=== PATIENT | male | born 1990 | race Two or more races ===

== ENCOUNTER → 2016-12-20 | Day surgery (SDC) | payer BC ==
[2016-12-15 16:12] VITALS: BMI 32.3
[~2016-12-20] MED LIST: LACTATED RINGERS 1,000 ML IV ONE; LACTATED RINGERS 1,000 ML IV SCH; PROPOFOL 10 MG/ML 20 ML VIAL IV ONE
[2016-12-20 08:14] VITALS: RESP 18; TEMP 98.2
[2016-12-20] MEDS: LIDOCAINE 1% 20 ML VIAL (10MG/ML) FOR IV START INTRADERMA PRN ×2 (08:16→08:34)
--- NOTE | 2016-12-20 10:03 | P.PCN ---
Date of Procedure: 12/20/16 Procedure(s) Performed: Procedure: Colonoscopy and biopsy. Preoperative diagnosis: Change in bowel habits and blood in the stools. Postoperative diagnosis: 1. Abnormal terminal ileum consistent with Crohn's disease, multiple biopsies and pictures taken. 2. Low-grade internal hemorrhoids without bleeding at the time of the exam, otherwise, colonoscopy within normal limits. 3. Random biopsies obtained from the colon. Preparation: HalfLytely prep. Sedation: Was provided by anesthesia. Brief clinical history: The patient is a 26-year-old male who is referred for this evaluation because of blood in the stool and change in bowel habits. He has been experiencing postprandial diarrhea and loose stools for the last couple years or so. He has history of psoriasis but no extraintestinal manifestations of inflammatory bowel disease. He has a cousin with bowel issues but no other family history of inflammatory bowel disease he is aware of. Procedure: With the patient on his left lateral decubitus position and after informed consent and adequate sedation, the perianal area was inspected and it did not show any fissures or fistulas. There were no masses felt on digital rectal examination. The Olympus CFQ 160L video colonoscope was then inserted in the rectum in the usual fashion and advanced to the cecum. I intubated the ileocecal valve and examined the terminal ileum for a good distance. The terminal ileum was abnormal showing the edema, erythema, friability and multiple scattered short serpiginous ulcerations covered with white exudates consistent with Crohn's disease. There were no strictures. The small bowel was involved for the full distance I was able to advance the colonoscope, although, the involvement appeared less proximally. I obtained multiple pictures and multiple biopsies from the small intestine then the endoscope was withdrawn back to the cecum. While withdrawing the endoscope I inspected the colon carefully and no abnormalities were seen. I obtained random biopsies from the colon. I then retroflexed the endoscope in the rectum before the endoscope was withdrawn. The patient tolerated the procedure well. Plan: I summarized the findings to the patient and his mother. While we are waiting for the biopsy results I would suggest that we proceed with the obtaining baseline workup anticipating initiating immunosuppressive/biologic therapy. I will keep you updated on his progress.
[2016-12-20 10:27] VITALS: BP 144/93; PULSE 79
== END ==
LOC: ORWHC2ENDO 08:05
DX: K52.9 Noninfective gastroenteritis and colitis, unspecified (principal); K64.8 Other hemorrhoids; R19.4 Change in bowel habit; I10 Essential (primary) hypertension; L40.9 Psoriasis, unspecified; Z88.0 Allergy status to penicillin; Z79.899 Other long term (current) drug therapy
CPT/HCPCS: 88305; 45380; J2704

== ENCOUNTER → 2017-01-07 | Outpatient (CLI) | payer BC ==
[2017-01-07 11:01] LABS: CHCM 33.7; HCT 43.1 % (39.0-53.0); HDW 2.99; HGB 13.8 gm/dL (13.0-17.5); MCH 26.8 pg (25.0-35.0); MCHC 32.1 g/dL (31.0-37.0); MCV 83.5 fL (80.0-100.0); Mean Platelet Volume 7.4; RBC 5.16 m/uL (4.30-5.90); RDW 13.1 % (11.5-15.5); WBC 13.1 k/uL (3.8-10.6)
[2017-01-07 11:13] LABS: ALT 46 U/L (21-72); AST 28 U/L (17-59); Alkaline Phosphatase 78 U/L (38-126); Anion Gap 9 mmol/L; Blood Urea Nitrogen 14 mg/dL (9-20); Calcium 9.8 mg/dL (8.4-10.2); Carbon Dioxide 28 mmol/L (22-30); Chloride 106 mmol/L (98-107); Glucose 95 mg/dL (74-99); Non-African American GFR(MDRD) >60 (>60 ml/min/1.73 sqM); Potassium 4.4 mmol/L (3.5-5.1); Sodium 143 mmol/L (137-145); Total Bilirubin 0.4 mg/dL (0.2-1.3); Total Protein 7.2 g/dL (6.3-8.2)
[2017-01-07 11:28] LABS: C Reactive Protein 24.4 mg/L (<10.0)
[2017-01-07 13:24] LABS: Erythrocyte Sedimentation Rate 19 mm/hr (0-15)
[2017-01-13 14:11] LABS: Mis test requested (Blood) TMPT Metabolites
== END | disposition home or self-care (01) ==
LOC: LABWHC1 10:07
DX: K50.90 Crohn's disease, unspecified, without complications (principal)
CPT/HCPCS: 36415; 80053; 80074; 82306; 82542; 82607; 85027; 85652; 86140; 86480

== ENCOUNTER → 2017-03-28 | Outpatient (CLI) | payer BC ==
[2017-03-28 14:10] LABS: HCT 43.4 % (39.0-53.0); HGB 14.5 gm/dL (13.0-17.5); MCH 26.9 pg (25.0-35.0); MCHC 33.3 g/dL (31.0-37.0); MCV 80.7 fL (80.0-100.0); Mean Platelet Volume 7.2; Platelet Count 298 k/uL (150-450); RBC 5.38 m/uL (4.30-5.90); RDW 13.1 % (11.5-15.5); WBC 13.3 k/uL (3.8-10.6)
[2017-03-28 14:45] LABS: ALT 60 U/L (21-72); AST 97 U/L (17-59); Albumin 4.8 g/dL (3.5-5.0); Alkaline Phosphatase 100 U/L (38-126); Amylase 59 U/L (30-110); Anion Gap 14 mmol/L; Blood Urea Nitrogen 14 mg/dL (9-20); C Reactive Protein 21.2 mg/L (<10.0); Calcium 10.1 mg/dL (8.4-10.2); Carbon Dioxide 25 mmol/L (22-30); Chloride 101 mmol/L (98-107); Glucose 91 mg/dL (74-99); Lipase 70 U/L (23-300); Potassium 4.3 mmol/L (3.5-5.1); Sodium 140 mmol/L (137-145); Total Bilirubin 0.5 mg/dL (0.2-1.3); Total Protein 7.8 g/dL (6.3-8.2)
[2017-03-28 15:27] LABS: Erythrocyte Sedimentation Rate 16 mm/hr (0-15)
== END | disposition home or self-care (01) ==
LOC: LABWHC1 13:26
DX: K50.00 Crohn's disease of small intestine without complications (principal)
CPT/HCPCS: 36415; 80053; 82150; 82542; 82657; 83690; 85027; 85652; 86140

== ENCOUNTER → 2017-07-28 | Outpatient (CLI) | payer BC ==
[2017-07-28 17:36] LABS: HCT 39.2 % (39.0-53.0); HGB 13.6 gm/dL (13.0-17.5); MCH 27.4 pg (25.0-35.0); MCHC 34.7 g/dL (31.0-37.0); Mean Platelet Volume 7.8; Platelet Count 300 k/uL (150-450); RBC 4.96 m/uL (4.30-5.90); RDW 13.5 % (11.5-15.5)
[2017-07-28 17:47] LABS: ALT 51 U/L (21-72); AST 54 U/L (17-59); Albumin 4.4 g/dL (3.5-5.0); Alkaline Phosphatase 86 U/L (38-126); Anion Gap 12 mmol/L; Blood Urea Nitrogen 16 mg/dL (9-20); Calcium 9.8 mg/dL (8.4-10.2); Carbon Dioxide 27 mmol/L (22-30); Chloride 103 mmol/L (98-107); Glucose 73 mg/dL (74-99); Potassium 4.8 mmol/L (3.5-5.1); Sodium 142 mmol/L (137-145); Total Bilirubin 0.3 mg/dL (0.2-1.3); Total Protein 6.7 g/dL (6.3-8.2)
[2017-07-28 19:58] LABS: Erythrocyte Sedimentation Rate 19 mm/hr (0-15)
== END | disposition home or self-care (01) ==
LOC: LABWHC1 17:03
DX: K50.00 Crohn's disease of small intestine without complications (principal)
CPT/HCPCS: 36415; 80053; 85027; 85652; 86140

== ENCOUNTER → 2018-02-09 | Outpatient (CLI) | payer BC ==
[2018-02-09 16:15] LABS: HCT 43.4 % (39.0-53.0); MCH 28.9 pg (25.0-35.0); MCHC 34.5 g/dL (31.0-37.0); MCV 83.7 fL (80.0-100.0); Mean Platelet Volume 7.9; Platelet Count 260 k/uL (150-450); RBC 5.18 m/uL (4.30-5.90); RDW 12.6 % (11.5-15.5); WBC 10.5 k/uL (3.8-10.6)
[2018-02-09 18:47] LABS: Erythrocyte Sedimentation Rate 8 mm/hr (0-15)
[2018-02-10 02:52] LABS: ALT 54 U/L (10-49); AST 35 U/L (14-35); Alkaline Phosphatase 107 U/L (41-126); C Reactive Protein <0.4 mg/dL (0.0-0.8); Calcium 9.7 mg/dL (8.7-10.3); Carbon Dioxide 28.3 mmol/L (21.6-31.8); Chloride 104 mmol/L (96-109); Glucose 95 mg/dL (70-110); Potassium 4.3 mmol/L (3.5-5.5); Sodium 142 mmol/L (135-145); Total Bilirubin 0.3 mg/dL (0.3-1.2); Total Protein 6.8 g/dL (6.2-8.2)
== END | disposition home or self-care (01) ==
LOC: LABWHC1 15:03
DX: K50.90 Crohn's disease, unspecified, without complications (principal)
CPT/HCPCS: 36415; 80053; 85027; 85652; 86140

== ENCOUNTER 2018-04-04 07:36 | Emergency (ER) | payer BC ==
[2018-04-04 07:59] VITALS: RESP 18
[2018-04-04] MEDS ORDERED: METOCLOPRAMIDE 5 MG/ML 2 ML VIAL IVP STA (08:23)
[2018-04-04] MEDS ORDERED: diphenhydrAMINE 50 MG/ML 1 ML VIAL IVP STA (08:23)
[2018-04-04] MEDS ORDERED: KETOROLAC 30 MG/ML 1 ML VIAL IVP STA (08:23)
[2018-04-04] MEDS ORDERED: SODIUM CHLORIDE 0.9% 1,000 ML IV STA (08:23)
--- NOTE | 2018-04-04 08:29 | ED ---
General Adult HPI - General Chief complaint: Headache Stated complaint: headaches, lump on leg Time Seen by Provider: 04/04/18 08:07 Source: patient, RN notes reviewed Mode of arrival: ambulatory Limitations: no limitations - History of Present Illness Initial comments: Patient 28-year-old male significant past medical history for hypertension, presented to the emergency room today with chief complaints of headache, and right leg pain. Patient does admit that he's had a headache off and on over the last month. She states she was concerned that was due to blood pressure as he was able to stop his metoprolol because he was working out but is gained weight again. He states that headache is seen at [facility] similar to headaches that he had in the past with elevated BP. Patient states that he began taking his metoprolol again approximately month ago. He states that he's had headaches that symptoms started in the back and radiate up to the top. Currently feeling some achy throbbing type pain to the top of the head. Currently rates a 4/10. He does admit that over the last month he has tried Tylenol/Motrin which does help with the headaches. Patient denies any other associated symptoms with headache. He does admit that the past week she's noticed area of redness to the medial aspect of the right thigh. He states it is locally tender. There was no injury or trauma. Patient denies any other complaints or symptoms. Patient denies any recent fever, chills, shortness of breath, chest pain, back pain, abdominal pain, nausea or vomiting, numbness or tingling, visual changes, or any other complaints. - Related Data Home Medications Medication Instructions Recorded Confirmed Metoprolol Succinate (ER) [Toprol 50 mg PO DAILY 04/04/18 04/04/18 Xl] inFLIXimab [Remicade] 1 dose IVPB Q56D 04/04/18 04/04/18 Previous Rx's Medication Instructions Recorded Ibuprofen [Motrin] 600 mg PO Q6HR PRN #40 day 04/04/18 Allergies Allergy/AdvReac Type Severity Reaction Status Date / Time Penicillins Allergy Rash/Hives Verified 04/04/18 08:10 Review of Systems ROS Statement: Those systems with pertinent positive or pertinent negative responses have been documented in the HPI. ROS Other: All systems not noted in ROS Statement are negative. Past Medical History Past Medical History: Hypertension, Skin Disorder Additional Past Medical History / Comment(s): DIARRHEA, UPPER ABD PAIN ON/OFF FOR LONG TIME. PSORIASIS. History of Any Multi-Drug Resistant Organisms: None Reported Additional Past Surgical History / Comment(s): PILONIDAL CYST EXC. Past Anesthesia/Blood Transfusion Reactions: No Reported Reaction Past Psychological History: No Psychological Hx Reported Smoking Status: Never smoker Past Alcohol Use History: None Reported Past Drug Use History: None Reported - Past Family History Father Family Medical History: Cancer General Exam - General Exam Comments Initial Comments: General: The patient is awake and alert, in no distress, and does not appear acutely ill. Eye: Pupils are equal, round and reactive to light, extra-ocular movements are intact. No nystagmus. There is normal conjunctiva bilaterally. No signs of icterus. Ears, nose, mouth and throat: There are moist mucous membranes and no oral lesions. Neck: The neck is supple Cardiovascular: There is a regular rate and rhythm. Respiratory: Lungs are clear to auscultation, respirations are non-labored, breath sounds are equal. No wheezes, stridor, rales, or rhonchi. Musculoskeletal: Normal ROM, no tenderness. Pulses equal bilaterally 2+. Neurological: A&O x 3. CN II-XII intact, There are no obvious motor or sensory deficits. Coordination appears grossly intact. Speech is normal. Skin: Skin is warm and dry and intact. Patient does have an area of faint redness to the medial right thigh measures approximately 2 cm across. There is minimal induration. No fluctuance. No lymphangitic streaking. Tender to palpation. Psychiatric: Cooperative, appropriate mood & affect, normal judgment. Limitations: no limitations Course Vital Signs 04/04/18 04/04/18 04/04/18 07:57 08:54 09:47 Temperature 98.1 F Pulse Rate 68 Respiratory 18 Rate Blood Pressure 150/102 138/79 110/54 O2 Sat by Pulse 99 Oximetry Medical Decision Making - Medical Decision Making Ultrasound is negative for any evidence of DVT. Patient's labs been reviewed unremarkable. Patient reexamined at this time states feeling much better. Headache is gone. Blood pressure improved. Patient's advised continue his blood pressure medication as previously prescribed. Patient will be started on anti-inflammatories both for any rebound headaches and also for pain to the right leg. Advised to an eye on area of redness and if it worsens to return here to the emergency room. He is advised follow-up family doctor over the next 2 days to have recheck. - Lab Data Result diagrams: 04/04/18 08:39 04/04/18 08:39 Lab Results 04/04/18 04/04/18 Range/Units 08:39 08:39 WBC 8.8 (3.8-10.6) k/uL RBC 5.33 (4.30-5.90) m/uL Hgb 15.3 (13.0-17.5) gm/dL Hct 44.2 (39.0-53.0) % MCV 82.9 (80.0-100.0) fL MCH 28.6 (25.0-35.0) pg MCHC 34.5 (31.0-37.0) g/dL RDW 12.8 (11.5-15.5) % Plt Count 273 (150-450) k/uL Neutrophils % 70 % Lymphocytes % 23 % Monocytes % 4 % Eosinophils % 1 % Basophils % 0 % Neutrophils # 6.1 (1.3-7.7) k/uL Lymphocytes # 2.0 (1.0-4.8) k/uL Monocytes # 0.3 (0-1.0) k/uL Eosinophils # 0.1 (0-0.7) k/uL Basophils # 0.0 (0-0.2) k/uL Sodium 140 (137-145) mmol/L Potassium 4.8 (3.5-5.1) mmol/L Chloride 104 (98-107) mmol/L Carbon Dioxide 27 (22-30) mmol/L Anion Gap 9 mmol/L BUN 12 (9-20) mg/dL Creatinine 1.01 (0.66-1.25) mg/dL Est GFR (CKD-EPI)AfAm >90 (>60 ml/min/1.73 sqM) Est GFR (CKD-EPI)NonAf >90 (>60 ml/min/1.73 sqM) Glucose 112 H (74-99) mg/dL Calcium 10.0 (8.4-10.2) mg/dL Disposition Clinical Impression: Headache, Leg pain, right Disposition: HOME SELF-CARE Condition: Good Instructions (If sedation given, give patient instructions): Acute Headache (ED ) Additional Instructions: Please use medication as discussed. Please follow-up with family doctor in the next 2 days. Please return to emergency room if the symptoms increase or worsen or for any other concerns. Prescriptions: Ibuprofen [Motrin] 600 mg PO Q6HR PRN #40 day PRN Reason: Pain Is patient prescribed a controlled substance at d/c from ED?: No Referrals: David Valdez DO [Primary Care Provider] - 1-2 days Time of Disposition: 10:10
[2018-04-04 09:36] LABS: Anion Gap 9 mmol/L; Blood Urea Nitrogen 12 mg/dL (9-20); Carbon Dioxide 27 mmol/L (22-30); Chloride 104 mmol/L (98-107); Glucose 112 mg/dL (74-99); Potassium 4.8 mmol/L (3.5-5.1); Sodium 140 mmol/L (137-145)
--- NOTE | 2018-04-04 09:43 | US ---
EXAMINATION TYPE: US venous doppler duplex LE RT DATE OF EXAM: 04/04/2018 9:18 AM COMPARISON: NONE CLINICAL HISTORY: Pain. right thigh pain for 1 week with no injury, no h/o dvt SIDE PERFORMED: Right TECHNIQUE: The lower extremity deep venous system is examined utilizing real time linear array sonog rojas with graded compression, doppler sonography and color-flow sonography. VESSELS IMAGED: External Iliac Vein (EIV) Common Femoral Vein Deep Femoral Vein Greater Saphenous Vein * Femoral Vein Popliteal Vein Small Saphenous Vein * Proximal Calf Veins (* superficial vessels) Right Leg: Appears negative for a dvt *patient unable to tolerate compression images and relax enough for vein to fully compress at EIV and FV Dist. Good color flow seen throughout vessels. IMPRESSION: 1. Right lower extremity ultrasound negative for deep venous thrombosis. 2. There is some limitation due to the degree of compressibility tolerated by the patient.
[2018-04-04 09:44] LABS: Basophils % (A) 0 %; Eosinophils # (A) 0.1 k/uL (0-0.7); Eosinophils % (A) 1 %; HCT 44.2 % (39.0-53.0); HGB 15.3 gm/dL (13.0-17.5); Lymphocytes % (A) 23 %; MCH 28.6 pg (25.0-35.0); MCHC 34.5 g/dL (31.0-37.0); MCV 82.9 fL (80.0-100.0); Mean Platelet Volume 6.9; Monocytes # (A) 0.3 k/uL (0-1.0); Monocytes % (A) 4 %; Neutrophils # (A) 6.1 k/uL (1.3-7.7); Neutrophils % (A) 70 %; Platelet Count 273 k/uL (150-450); RBC 5.33 m/uL (4.30-5.90); RDW 12.8 % (11.5-15.5); WBC 8.8 k/uL (3.8-10.6)
[2018-04-04 10:53] VITALS: BP 137/89; PULSE 66; TEMP 98.5
== END 2018-04-04 10:53 | disposition home or self-care (01) ==
LOC: EC 07:36
DX: M79.604 Pain in right leg (principal); R51 Headache; R23.8 Other skin changes; R23.4 Changes in skin texture; R63.5 Abnormal weight gain; I10 Essential (primary) hypertension; L40.9 Psoriasis, unspecified; Z88.0 Allergy status to penicillin; Z79.899 Other long term (current) drug therapy; Z98.890 Other specified postprocedural states
CPT/HCPCS: 36415; 80048; 85025; 93971; 99284; 96374; 96375 ×2; 96361 ×2; J1200; J2765; J1885

== ENCOUNTER → 2018-06-13 | Outpatient (CLI) | payer BC ==
[2018-06-13 08:13] LABS: HCT 43.1 % (39.0-53.0); HGB 14.9 gm/dL (13.0-17.5); MCH 28.8 pg (25.0-35.0); MCHC 34.5 g/dL (31.0-37.0); MCV 83.5 fL (80.0-100.0); Mean Platelet Volume 8.2; Platelet Count 269 k/uL (150-450); RBC 5.16 m/uL (4.30-5.90); RDW 14.2 % (11.5-15.5)
[2018-06-13 10:46] LABS: Erythrocyte Sedimentation Rate 10 mm/hr (0-15)
[2018-06-13 10:51] LABS: Albumin 4.9 g/dL (3.80-4.90); Albumin/Globulin Ratio 2.13 (1.60-3.17); Anion Gap 6.9 mmol/L (4.00-12.00); C Reactive Protein 0.6 mg/dL (0.0-0.8); Calcium 9.6 mg/dL (8.7-10.3); Carbon Dioxide 27.1 mmol/L (21.6-31.8); Globulin 2.3 g/dL (1.6-3.3); Potassium 4.7 mmol/L (3.5-5.5); Total Bilirubin 0.4 mg/dL (0.3-1.2); Total Protein 7.2 g/dL (6.2-8.2)
== END ==
LOC: LABWHC1 07:06
DX: K50.90 Crohn's disease, unspecified, without complications (principal)
CPT/HCPCS: 36415; 80053; 85027; 85652; 86140

== ENCOUNTER → 2019-03-02 | Outpatient (CLI) | payer BC ==
[2019-03-02 11:29] LABS: Basophils # (A) 0.1 k/uL (0-0.2); Basophils % (A) 1 %; Eosinophils # (A) 0.1 k/uL (0-0.7); Eosinophils % (A) 1 %; HCT 44.9 % (39.0-53.0); HGB 15.5 gm/dL (13.0-17.5); Lymphocytes # (A) 2.2 k/uL (1.0-4.8); Lymphocytes % (A) 23 %; MCH 29.1 pg (25.0-35.0); MCHC 34.6 g/dL (31.0-37.0); MCV 84.1 fL (80.0-100.0); Mean Platelet Volume 8.9; Monocytes # (A) 0.6 k/uL (0-1.0); Monocytes % (A) 6 %; Neutrophils # (A) 6.3 k/uL (1.3-7.7); Neutrophils % (A) 66 %; Platelet Count 265 k/uL (150-450); RBC 5.34 m/uL (4.30-5.90); RDW 12.3 % (11.5-15.5); WBC 9.5 k/uL (3.8-10.6)
[2019-03-02 12:47] LABS: Erythrocyte Sedimentation Rate 11 mm/hr (0-15)
[2019-03-02 17:16] LABS: African American GFR (CKD) 116.5 (60.0-200.0); Albumin 4.8 g/dL (3.80-4.90); Albumin/Globulin Ratio 2.09 (1.60-3.17); Anion Gap 9.5 mmol/L (4.00-12.00); C Reactive Protein 0.9 mg/dL (0.0-0.8); Calcium 9.7 mg/dL (8.7-10.3); Carbon Dioxide 26.5 mmol/L (21.6-31.8); Globulin 2.3 g/dL (1.6-3.3); Non-African American GFR(CKD) 100.5 (60.0-200.0); Potassium 4.4 mmol/L (3.5-5.5); Total Bilirubin 0.5 mg/dL (0.3-1.2); Total Protein 7.1 g/dL (6.2-8.2)
== END | disposition home or self-care (01) ==
LOC: LABWHC1 10:18
DX: K50.90 Crohn's disease, unspecified, without complications (principal); I10 Essential (primary) hypertension; F41.9 Anxiety disorder, unspecified; Z13.220 Encounter for screening for lipoid disorders; Z13.29 Encounter for screening for other suspected endocrine disorder
CPT/HCPCS: 36415; 80053; 82306; 82607; 84443; 85025; 85652; 86140

== ENCOUNTER → 2019-04-04 | Outpatient (CLI) | payer BC ==
--- NOTE | 2019-04-04 09:35 | US ---
EXAMINATION TYPE: US abdomen complete DATE OF EXAM: 04/04/2019 COMPARISON: NONE CLINICAL HISTORY: R74.8 Elevated liver enzymes. EXAM MEASUREMENTS: Liver Length: 18.5 cm Gallbladder Wall: 0.2 cm CBD: 0.2 cm Spleen: 13.0 cm Right Kidney: 11.0 x 5.6 x 4.8 cm Left Kidney: 11.7 x 4.8 x 5.6 cm Large body habitus. Technically difficult study. Pancreas: wnl in its visualized portions. Liver: Increased attenuation, decreased visualization of vessels suggestive of fatty infiltrate. Thi s limits evaluation for hepatic masses. Possible fatty sparing adjacent to gallbladder, measures larg e Gallbladder: somewhat limited visualization, appears wnl Evidence for sonographic Avelar's sign: No CBD: somewhat limited visualization, appears wnl Spleen: Upper limits of normal size. Right Kidney: No hydronephrosis or masses seen Left Kidney: No hydronephrosis or masses seen Upper IVC: wnl Abd Aorta: partially obscured by bowel gas appears wnl as seen The intrahepatic portion of the IVC and proximal abdominal aorta are within normal limits. There is no evidence of cholelithiasis. Common bile duct is unremarkable. The visualized portions of the leonard creas are homogenous. The spleen is upper limits of normal size. Kidneys are symmetric and free of hydronephrosis. No renal lesions are seen. IMPRESSION: 1. Sonographic findings most commonly related to hepatic steatosis. Correlate with liver function amandeep ts. 2. Upper limits of normal size of the spleen. 3. Somewhat limited evaluation of the gallbladder, pancreas, and abdominal aorta given patient body h abitus and bowel gas.
[2019-04-04 11:20] LABS: HCT 43.6 % (39.0-53.0); HGB 15.2 gm/dL (13.0-17.5); MCHC 34.8 g/dL (31.0-37.0); MCV 83.2 fL (80.0-100.0); Mean Platelet Volume 8.2; Platelet Count 284 k/uL (150-450); RBC 5.24 m/uL (4.30-5.90); RDW 12.3 % (11.5-15.5); WBC 11.6 k/uL (3.8-10.6)
[2019-04-04 11:47] LABS: ALT 58 U/L (4-49); AST 45 U/L (17-59); African American GFR (CKD) >90 (>60 ml/min/1.73 sqM); Alkaline Phosphatase 73 U/L (38-126); Anion Gap 12 mmol/L; Bilirubin, Delta 0.4 mg/dL (0.0-0.2); Bilirubin,Unconjugated 0.5 mg/dL (0.0-1.1); Blood Urea Nitrogen 19 mg/dL (9-20); C Reactive Protein 17.4 mg/L (<10.0); Calcium 9.8 mg/dL (8.4-10.2); Carbon Dioxide 29 mmol/L (22-30); Chloride 99 mmol/L (98-107); Glucose 99 mg/dL (74-99); Non-African American GFR(CKD) 89 (>60 ml/min/1.73 sqM); Potassium 4.6 mmol/L (3.5-5.1); Sodium 140 mmol/L (137-145); Total Bilirubin 0.9 mg/dL (0.2-1.3); Total Protein 8.3 g/dL (6.3-8.2)
[2019-04-04 13:22] LABS: Erythrocyte Sedimentation Rate 19 mm/hr (0-15)
[2019-04-04 16:22] LABS: % Iron Saturation 28.71 (15.00-50.00); Iron 91 ug/dL (65-175); Total Iron Binding Capacity 317 ug/dL (228-460)
[2019-04-04 16:43] LABS: Ferritin 307.6 ng/mL (22.0-322.0)
[2019-04-04 17:34] LABS: Gliadin AB IgA, Deaminated NEGATIVE (NEGATIVE); Gliadin AB IgA, Unit <0.2 U/mL
[2019-04-04 17:36] LABS: Gliadin AB IgG, Deaminated NEGATIVE (NEGATIVE)
[2019-04-04 19:35] LABS: Hepatitis A Antibody IgM Non-Reactive (Non-Reactive); Hepatitis B Core IgM Non-Reactive (Non-Reactive); Hepatitis B Surface Antigen Non-Reactive (Non-Reactive); Hepatitis C IgG Antibody Non-Reactive (Non-Reactive)
[2019-04-04 23:05] LABS: Protein, Total 7.5 g/dL (6.2-8.2)
[2019-04-05 10:35] LABS: Ceruloplasmin 25.3 mg/dL (20.0-60.0)
[2019-04-05 12:44] LABS: Albumin 4.54 g/dL (3.80-4.90); Gamma Globulin 1.12 g/dL (0.70-1.50)
== END | disposition home or self-care (01) ==
LOC: RADUSWWP 08:16
PROVIDERS: ATTEND Internal Medicine
DX: R74.8 Abnormal levels of other serum enzymes (principal); K50.90 Crohn's disease, unspecified, without complications
CPT/HCPCS: 76700; 80053; 80074; 82103; 82248; 82306; 82390; 82728; 83516; 83540; 83550; 84165; 85027; 85652; 86038; 86140

== ENCOUNTER → 2021-11-07 | Outpatient (CLI) | payer BC ==
[2021-11-07 16:37] LABS: Basophils # (A) 0.03 X 10*3/uL (0.00-0.10); Basophils % (A) 0.2 %; Eosinophils # (A) 0.11 X 10*3/uL (0.04-0.35); Eosinophils % (A) 0.9 %; HCT 43.9 % (39.6-50.0); HGB 14.8 g/dL (13.0-17.0); Immature Grans, Automated 0.3 %; Lymphocytes # (A) 2.79 X 10*3/uL (0.90-5.00); Lymphocytes % (A) 23.2 %; MCH 28.6 pg (27.0-32.0); MCHC 33.7 g/dL (32.0-37.0); MCV 84.7 fL (80.0-97.0); Mean Platelet Volume 10.9 fL (9.5-12.2); Monocytes # (A) 0.79 X 10*3/uL (0.20-1.00); Monocytes % (A) 6.6 %; NRBC Per 100 WBC 0 /100 WBCS (0.0-0.0); Neutrophils # (A) 8.26 X 10*3/uL (1.80-7.70); Neutrophils % (A) 68.8 %; Platelet Count 277 X 10*3/uL (140-440); RBC 5.18 X 10*6/uL (4.40-5.60); RDW 12.2 % (11.5-14.5); WBC 12.02 X 10*3/uL (4.50-10.00)
[2021-11-07 16:55] LABS: ALT 44 U/L (10-49); AST 29 U/L (14-35); African American GFR (CKD) 117.5 (60.0-200.0); Albumin 4.7 g/dL (3.8-4.9); Albumin/Globulin Ratio 1.83 (1.60-3.17); Alkaline Phosphatase 84 U/L (41-126); BUN/Creat Ratio 15.78 Ratio (12.00-20.00); Blood Urea Nitrogen 15.5 mg/dL (9.0-27.0); Calcium 9.6 mg/dL (8.7-10.3); Carbon Dioxide 24.2 mmol/L (20.0-27.5); Chloride 104 mmol/L (96-109); Chol/HDL Ratio 4.16 Ratio; Globulin 2.6 g/dL (1.6-3.3); Glucose 113 mg/dL (70-110); LDL Cholesterol,Calculated 98.1 mg/dL (0.0-131.0); Non-African American GFR(CKD) 101.4 (60.0-200.0); Potassium 4.5 mmol/L (3.5-5.5); Sodium 142 mmol/L (135-145); Total Protein 7.3 g/dL (6.2-8.2)
== END | disposition home or self-care (01) ==
LOC: LABWHC1 10:01
PROVIDERS: ATTEND Physician Assistant
DX: Z00.00 Encounter for general adult medical examination without abnormal findings (principal); Z13.220 Encounter for screening for lipoid disorders; I10 Essential (primary) hypertension; F41.9 Anxiety disorder, unspecified
CPT/HCPCS: 36415; 80053; 80061; 84443; 85025

== ENCOUNTER → 2022-02-24 | Outpatient (CLI) | payer BC ==
[2022-02-24 22:47] LABS: Basophils # (A) 0.05 X 10*3/uL (0.00-0.10); Basophils % (A) 0.5 %; Eosinophils # (A) 0.13 X 10*3/uL (0.04-0.35); Eosinophils % (A) 1.2 %; HCT 44.3 % (39.6-50.0); HGB 14.5 g/dL (13.0-17.0); Immature Grans, Automated 0.4 %; Lymphocytes # (A) 2.67 X 10*3/uL (0.90-5.00); Lymphocytes % (A) 24.1 %; MCH 28.3 pg (27.0-32.0); MCHC 32.7 g/dL (32.0-37.0); MCV 86.4 fL (80.0-97.0); Monocytes # (A) 0.81 X 10*3/uL (0.20-1.00); Monocytes % (A) 7.3 %; NRBC Per 100 WBC 0 /100 WBCS (0.0-0.0); Neutrophils # (A) 7.37 X 10*3/uL (1.80-7.70); Neutrophils % (A) 66.5 %; Platelet Count 327 X 10*3/uL (140-440); RBC 5.13 X 10*6/uL (4.40-5.60); RDW 12.4 % (11.5-14.5); WBC 11.07 X 10*3/uL (4.50-10.00)
== END | disposition home or self-care (01) ==
LOC: LABWHC1 13:43
PROVIDERS: ATTEND Physician Assistant
DX: D72.828 Other elevated white blood cell count (principal)
CPT/HCPCS: 36415; 85025